=== PATIENT | female | born 1960 | race Caucasian/White ===

== ENCOUNTER 2021-08-20 06:02 | Day surgery (SDC) | payer MEDICAID ==
[2021-08-20] MEDS ORDERED: Lactated Ringers 1,000 ML IV ONE (07:15)
[2021-08-20] MEDS ORDERED: Cyanocobalamin (Vitamin B12) 1,000 MCG/ML SDV IM ONE (07:30)
[2021-08-20] MEDS ORDERED: MVI, Adult with Vitamin K 10 ML, Thiamine 200 MG, Chromium/Copper/Mang/Selen/Zn 1 ML in... IV ONE ×4 (08:15)
== END 2021-08-20 07:30 | disposition home or self-care (01) ==
LOC: JP.SDS 06:02
PROVIDERS: ATTEND Surgery
DX: K95.89 Other complications of other bariatric procedure (principal); H54.7 Unspecified visual loss; E03.9 Hypothyroidism, unspecified; E66.9 Obesity, unspecified; Z98.84 Bariatric surgery status; Z90.49 Acquired absence of other specified parts of digestive tract; Z98.890 Other specified postprocedural states; Z68.42 Body mass index [BMI] 45.0-49.9, adult; Z53.09 Procedure and treatment not carried out because of other contraindication
CPT/HCPCS: J3420; J7120